=== PATIENT | female | born 1995 | race Caucasian/White ===

== ENCOUNTER 2018-10-04 12:06 | Emergency (ER) | payer MEDICAID ==
[~2018-10-04] VITALS: Ht 152.4 cm; Wt 72.1 kg
[2018-10-04 12:13] VITALS: Ht 152.4 cm; Wt 72.1 kg
[2018-10-04 13:58] VITALS: BP 109/59
== END 2018-10-04 13:58 | disposition home or self-care (01) ==
LOC: ED 12:06
DX: S00.86XA Insect bite (nonvenomous) of other part of head, initial encounter (principal); S50.862A Insect bite (nonvenomous) of left forearm, initial encounter; S90.562A Insect bite (nonvenomous), left ankle, initial encounter; W57.XXXA Bitten or stung by nonvenomous insect and other nonvenomous arthropods, initial encounter; Y93.89 Activity, other specified; Y92.89 Other specified places as the place of occurrence of the external cause; Y99.8 Other external cause status
CPT/HCPCS: J7512

== ENCOUNTER 2019-09-02 21:51 | Emergency (ER) | payer MEDICAID, SELFPAY ==
[~2019-09-02] VITALS: Ht 152.4 cm; Wt 78.9 kg
[2019-09-03 00:50] VITALS: BP 116/74
== END 2019-09-03 00:50 | disposition home or self-care (01) ==
LOC: ED 21:51
DX: U07.1 COVID-19 (principal); B34.9 Viral infection, unspecified
CPT/HCPCS: 87804; U0003-CS

== ENCOUNTER 2020-01-31 04:27 | Emergency (ER) | payer MEDICAID ==
[2020-01-31 04:36] VITALS: Ht 154.9 cm
[2020-01-31 05:17] VITALS: BP 131/39
== END 2020-01-31 05:17 | disposition home or self-care (01) ==
LOC: ED 04:27
DX: O99.611 Diseases of the digestive system complicating pregnancy, first trimester (principal); Z3A.01 Less than 8 weeks gestation of pregnancy

== ENCOUNTER 2020-05-05 04:42 | Emergency (ER) | payer MEDICAID ==
[~2020-05-05] VITALS: Ht 152.4 cm; Wt 85.3 kg
[2020-05-05 05:02] VITALS: Ht 152.4 cm; Wt 85.3 kg
[2020-05-05 06:32] VITALS: BP 109/63
== END 2020-05-05 06:32 | disposition home or self-care (01) ==
LOC: ED 04:42
DX: O23.42 Unspecified infection of urinary tract in pregnancy, second trimester (principal); O99.512 Diseases of the respiratory system complicating pregnancy, second trimester; Z3A.17 17 weeks gestation of pregnancy
CPT/HCPCS: J0696